=== PATIENT | male | born 1985 | race Caucasian/White ===

== ENCOUNTER 2017-05-04 20:17 | Emergency (ER) | payer OTHER ==
[~2017-05-04] VITALS: Ht 175.3 cm; Wt 101.9 kg
[2017-05-04 20:20] VITALS: TEMP 36.3; Ht 175.3 cm; Wt 101.9 kg
[2017-05-04 22:21] VITALS: BP 141/84; PULSE 93; O2SAT 95
[2017-05-04 22:25] LABS: LYME DISEASE AB IGG POS (NEG); LYME DISEASE AB IGM POS (NEG)
--- NOTE | 2017-05-04 22:37 | EMERGENCY ROOM VISIT NOTE ---
ED Visit Note First contact with patient: 20:30 CHIEF COMPLAINT: Skin rash HISTORY OF PRESENT ILLNESS: This 31-year-old male presents the ER with chief complaint that he has a bull's-eye rash all over his body. The patient states that he is in the [place] a lot but denies any known tick bites. The patient denies any fever or body aches. He states the rash is not itchy. The patient denies any history of Lyme's disease. REVIEW OF SYSTEMS: 6 system review was performed and was negative unless stated otherwise in history of present illness. PMH: The patient is healthy; wisdom teeth removal, finger surgery SOCIAL HISTORY: Patient lives with his family. The patient denies any tobacco or alcohol use. PHYSICAL EXAM: Vital Signs: Were reviewed See nurses' notes. GENERAL: 31-year- old white male appears in no acute distress. MENTAL Status: Alert and oriented 3. LUNGS: Clear to auscultation without wheezes rales or rhonchi. CARDIAC: Regular rate and rhythm without murmur. SKIN: The patient has multiple erythematous rings with central clearing over his trunk a few on his legs. There is one larger lesion that has a central reddened area. The rash is not raised or scaly. EMERGENCY COURSE: The patient was evaluated. Lyme titer was positive. The patient was given doxycycline 100 mg by mouth while in the emergency room. The patient was discharged home in stable condition. DIAGNOSIS: Lyme's disease DISCHARGE INSTRUCTIONS & TREATMENT: Tylenol or ibuprofen as needed for fever or body aches. Take the doxycycline as prescribed. If symptoms persist or worsen , follow-up with your family doctor. Current/Historical Medications No Active Prescriptions or Reported Meds Allergies Coded Allergies: Latex1 -Allergic Contact Dermititis (Verified Allergy, Intermediate, RASH , 05/04/17) Vital Signs Date Time Temp Pulse Resp B/P (MAP) Pulse Ox O2 Delivery O2 Flow Rate FiO2 05/04/17 22:21 93 18 141/84 95 Room Air 05/04/17 20:20 36.3 87 20 136/83 95 Room Air Laboratory Results Test 05/04/17 20:50 Lyme Disease IgG Antibody POS (NEG) Departure Information Prescriptions No Active Prescriptions or Reported Meds Referrals Tri Lizarraga C.R.N.P. (PCP) Patient Instructions [facility]
[2017-05-04] MEDS ORDERED: DOXY100T PO (22:40)
[2017-05-04] MEDS ORDERED: DOXYCYCLINE HYCLATE 100 MG CAP PO ONE (22:45)
[2017-05-10 08:31] LABS: 18KDIGG BAND NONREACTIVE (NONREACTIVE); 23KDIGG BAND REACTIVE (NONREACTIVE); 23KDIGM BAND REACTIVE (NONREACTIVE); 28KDIGG BAND NONREACTIVE (NONREACTIVE); 30KDIGG BAND NONREACTIVE (NONREACTIVE); 39KDIGG BAND NONREACTIVE (NONREACTIVE); 39KDIGM BAND NONREACTIVE (NONREACTIVE); 41KDIGG BAND REACTIVE (NONREACTIVE); 41KDIGM BAND REACTIVE (NONREACTIVE); 45KDIGG BAND REACTIVE (NONREACTIVE); 58KDIGG BAND NONREACTIVE (NONREACTIVE); 66KDIGG BAND REACTIVE (NONREACTIVE); 93KDIGG BAND NONREACTIVE (NONREACTIVE)
== END 2017-05-04 22:47 | disposition home or self-care (01) ==
LOC: C.EDB 20:18 → C.EDD 22:47
DX: A69.20 Lyme disease, unspecified (principal)

== ENCOUNTER → 2017-06-03 | Outpatient (CLI) | payer OTHER ==
--- NOTE | 2017-06-03 15:42 | DIAGNOSTIC IMAGING REPORT ---
LEFT INDEX FINGER 3 VIEWS HISTORY: L INDEX FINGER INJURY 2 DAYS AGO COMPARISON: None. FINDINGS: There is no fracture or dislocation. Mild proximal soft tissue swelling. No radiopaque foreign bodies. IMPRESSION: No fractures. Mild proximal soft tissue swelling within the left index finger. Electronically signed by: Sanchez Raya M.D. 06/03/2017 3:41 PM Dictated Date/Time: 06/03/2017 3:39 PM
== END | disposition home or self-care (01) ==
LOC: C.RAD1850 15:18
PROVIDERS: ATTEND Physician Assistant Surgical
DX: S69.92XA Unspecified injury of left wrist, hand and finger(s), initial encounter (principal); X58.XXXA Exposure to other specified factors, initial encounter

== ENCOUNTER 2017-12-31 10:44 | Emergency (ER) | payer OTHER ==
[~2017-12-31] VITALS: Ht 175.3 cm; Wt 106.5 kg
[2017-12-31 10:45] VITALS: TEMP 36.3; Ht 175.3 cm; Wt 106.5 kg
--- NOTE | 2017-12-31 11:29 | EMERGENCY ROOM VISIT NOTE ---
History First contact with patient: 11:11 Chief Complaint: LACERATION/CUT (SUT/DERMABOND) Stated Complaint: HAND LACERATION Nursing Triage Summary: Left posterior hand with a 1cm approximated horizontal laceration distal to the index finger. Bleeding is controlled. He is holding a dressing in place. History of Present Illness The patient is a 32 year old male who presents to the Emergency Room with complaints of a laceration to the left hand. The patient reports that he injured his left hand while working with a utility knife today. The injury occurred just prior to arrival in the ED. He rates his discomfort a 3/10 and states the pain is sharp. Pain is worsened with movement. He denies any associated numbness or weakness of the fingers. He has full range of motion of the hand. He believes that his tetanus vaccine is up-to-date. Review of Systems A 10 point review of systems was reviewed with the patient with pertinent positives and negatives as per history of present illness. All else were negative. Past Medical/Surgical History Medical Problems: (1) No significant active problems Surgical Problems: (1) No significant past surgical history Family History Patient reports no known family medical history. Social History Smoking Status: Never Smoker Alcohol Use: none Marital Status: Housing Status: lives with family Occupation Status: employed Current/Historical Medications No Active Prescriptions or Reported Meds Physical Exam Vital Signs Date Time Temp Pulse Resp B/P (MAP) Pulse Ox O2 Delivery O2 Flow Rate FiO2 12/31/17 10:45 36.3 110 20 135/97 95 Room Air Physical Exam VITALS: Vitals are noted on the nurse's note and reviewed by myself. Vital signs stable. GENERAL: This is a 32-year-old male, in no acute distress, well-developed well- nourished. SKIN: There is a 2 cm laceration to the dorsal aspect of the left hand, just proximal to the index finger. There are no tendons or significant blood vessels seen in the base of the wound. MUSCULOSKELETAL: Full range of motion of all fingers of the left hand. Strength 5/5 in the left index finger. Capillary refill within 2 seconds. NEURO: Patient was alert and oriented. Normal sensation of the left index finger. Medical Decision & Procedures Procedure Verbal consent was obtained to perform the procedure. Using sterile technique the wound was cleaned with Betadine. The area was sterilely draped. 2 ml of 1 % buffered lidocaine with epinephrine was infiltrated into the wound to achieve local anesthesia. Once the patient was anesthetized, the wound was copiously irrigated under pressure with sterile saline. The wound was explored and there were no deep structures injured such as tendons, bone, or significant blood vessels. The laceration was repaired using 4 simple interrupted 4-0 nylon sutures with the wound edges being well approximated. The patient tolerated the procedure well. Hemostasis was achieved. The area was cleaned with sterile saline and dressed with bacitracin ointment and bandage. Medical Decision The patient was evaluated as above. He presents with a laceration to the left hand. The wound was explored on exam and shows no tendon injury. This was repaired as noted in the procedure section. Suture care instructions were discussed with the patient. He verbalized understanding of my assessment and treatment plan and was discharged home in good condition. Medication Reconcilliation Current Medication List: was personally reviewed by me Blood Pressure Screening Patient's blood pressure: Normal blood pressure Impression Primary Impression: Hand laceration Departure Information Dispostion Home / Self-Care Condition GOOD Prescriptions No Active Prescriptions or Reported Meds Referrals Tri Lizarraga, C.R.N.P. (PCP) Patient Instructions [facility] Additional Instructions You have received 4 sutures on your hand. These sutures are NOT dissolvable and WILL need to be removed by a health care provider in 10-12 days. You can return to the Emergency Department or contact your Primary Care Provider to have the sutures removed. Proper wound care is essential for adequate wound healing and infection prevention. You can shower and clean the wound with soap and water. Do not scour over the wound, pat dry with a towel. Do not submerse the wound (i.e. bathe or dish wash) until the sutures have been removed. You can use an antibiotic ointment with a dressing over the wound for the next 3-4 days. After this time you may leave the wound dry and open to the air. If crust develops over the wound you can use a Q-tip to apply a 1:1 peroxide:water solution to clean the wound. Look for signs of infection of the wound including: increased pain, swelling, foul discharge, streaking, or increased temperature. If any of these are noticed you should return to the Emergency Department for further assessment and treatment. As with any laceration you may have received nerve damage to the surrounding tissues. This damage may or may not be permanent. You should keep the area covered with sunscreen for the first 6 months to 1 year when at risk for exposure to help minimize scarring. You can also use scar reducing creams or Vitamin E oil to help minimize scarring. For pain control, you can use the following ebqe-xjq-yxmebki medicines (if >12 yo): - Regular strength (325mg/tab) Tylenol (acetaminophen) 2 tabs every 4-6 hours as needed. Do not exceed 12 tablets in a 24 hour period. Avoid taking more than 4 grams (4000 mg) of Tylenol per day. This includes any other sources of acetaminophen you may take on a regular basis. - Regular strength (200 mg/tab) Advil (ibuprofen) 1-2 tabs every 4-6 hours as needed. Do not exceed a dose of 3200 mg per day. Return to the emergency department if your symptoms worsen despite treatment course outlined above. Problem Qualifiers Primary Impression: Hand laceration Encounter type: initial encounter Foreign body presence: without foreign body Laterality: left Qualified Codes: S61.412A - Laceration without foreign body of left hand, initial encounter
[2017-12-31] MEDS ORDERED: LIDOCAINE/EPINEPHRINE 1% 20 ML VIAL INFIL ONE (11:30)
[2017-12-31 12:02] VITALS: BP 132/94; PULSE 97; O2SAT 98
== END 2017-12-31 12:03 | disposition home or self-care (01) ==
LOC: C.EDB 10:45 → C.EDD 12:03
DX: S61.412A Laceration without foreign body of left hand, initial encounter (principal); W26.0XXA Contact with knife, initial encounter

== ENCOUNTER 2024-10-22 22:57 | Inpatient (IN) ==
--- OUTSIDE RECORDS SUMMARY | 2024-10-22 23:04 | External Medical Summary | Continuity of Care Document ---
Author Name Unknown Organization [facility] [address] [place] [address] [address] [place] PELAYO [phone] Care Team Providers Care Hide Examiner Name Role Phone Tri Fernandez Primary Care Physician [phone] Encounter [facility] [id number] Date(s): 08/11/24 - 08/11/24 [facility] [address] [facility] [address] [place] [address] Encounter Diagnosis Acute lower limb ischemia(Discharge Diagnosis) - 08/11/24 Discharge Disposition: Home or Self Care Attending Physician: Yang Loyola MD, Maria C Referring Physician: Yang Loyola MD, Maria C Allergies, Adverse Reactions, Alerts Substance Criticality Severity Reaction Reaction Severity Status Latex 1 Contact dermatitis A ctive 1Dermatitis per [facility] EMR Assessment and Plan Extracted from: Title:Surgery Office Visit Note Author:Yang Loyola MD, Maria C Date:08/11/24 I have reviewed the ultrasou nd with the patient and his and at this timethere is no concern regarding the flow to the right lower extremity. He has normal ABIs and normal triphasic flow. He does have a flap that we have known about it since a year agoand at this point is chronic. For this reason I do not think he needs to be on dual antiplatelet therapyand I have asked him to stop the Brilinta as soon as the prescription runs out. He should only remain on aspirin daily. We reviewed the signs and symptoms of arterial insufficiency including claudication, rest pain and nonhealing wounds and they know to call us with any issues or concerns. Follow-up in a year with a right lower extremity duplex. Medications aspirin 81 mg oral tablet, chewable Start: 08/23/23 9:27:00 AM EDT, 1 tab, PO, Daily Start Date: 08/23/23 Status: Ordered atorvastatin 40 mg oral tablet Start: 08/23/23 9:27:00 AM EDT, 1 tab, PO, Daily Start Date: 08/23/23 Status: Ordered Brilinta (ticagrelor) 90 mg oral tablet Start: 08/23/23 9:27:00 AM EDT, 1 tab, PO, bid Start Date: 08/23/23 Status: Ordered Coreg 25 mg oral tablet Start: 09/05/23 4:13:00 PM EST, 1 tab, PO, bid Start Date: 09/05/23 Status: Ordered Mental Status 08/11/24 Barriers to Learning one year None evide nt Mandatory Health Literacy Documentation Yes Health Literacy Communication Barriers N ever Primary Language Kinyarwanda Problem List Condition Confirmation Course Effective Dates Status H ealth Status Informant Acute lower limb ischemia Confirmed Active Stroke Confirmed Active Hyperlipidemia Confirmed Active Diagnosis Diagnosis Type Effective Dates Health Status Cl inical Service Informant Acute lower limb ischemia Discharge Diagnosis 08/11/24 Procedures Procedure Date Related Diagnosis Body Site Status Stent Completed Vital Signs Most recent to oldest [Reference Range]: 1 Patient Weight 110.0 kg (08/11/24 1:49 PM) Heart Rate 73 bpm (08/11/24 1:49 PM) Blood Pressure 128/72mmHg (08/11/24 1:49 PM) BP Location # 1 Left Arm (08/11/24 1:49 PM) Social History Social History Type Response Smoking Status Never smoked cigaret leticia Sex Male Sex Representation Male (finding) Implantable Device List Procedure Provider Procedure Date Device Type Site Unknown Unknown 08/16/23 Unknown Unknown Device Identifier Serial Number Lot or Batch Number Manufacturing Date Expiration Date Distinct Identification Code MRI Safety Implantable Status Assigning Authority Unknown Unknown [id number] Unknown 01/22/29 Unknown Unknown Active Unk nown Vascular surgery Outpatient Note * Yang Loyola MD, Maria C: PERFORM, MODIFY Event Display: Vascular Surgery Outpt Note Authored Date: [id number] Primary Care Provider SHANDRA Fernandez Rebecca Linn Referring Provider Yang Loyola MD, Maria C Chief Complaint 1 year follow up for lower limb ischemia History of Present Illness Patient is a very pleasant 39-year-old male who underwent right femoral reconstruction a year ago after he had a strokeandhe had a closure device on theright lower extremity after neurosurgery's intervention. He recovered well from both the stroke and acute limb ischemia and is doing well. He is back to work and does not have any evidence of arterial insufficiency. Denied any claudication, rest pain or nonhealing wounds. As [facility] that he will not need Brilinta any longer and that it was up to me to decide the antiplatelet regimen. He is currently taking aspirin as well as Brilinta. No new issues or concerns. Physical Exam Vitals & Measurements HR:73(Monitored) BP:128/72 WT:110.000kg(Dosing) WT:110.0kg On exam his very pleasant and answering questions appropriately Regular rhythm rhythm Abdomen is soft and not tender Bilateral femoral pulses Bilateral DP and PT pulses. No evidence of malperfusion. Assessment/Plan I have reviewed the ultrasound with the patient and his and at this timethere is no concern regarding the flow to the right lower extremity. He has normal ABIs and normal triphasic flow. He does have a flap that we have known about it since a year agoand at this point is chronic. Forthis reason I do not think he needs to be on dual antiplatelet therapyand I have asked him to stop the Brilinta as soon as the prescription runs out. He should only remain on aspirin daily. We reviewed the signs and symptoms of arterial insufficiency including claudication, rest pain and nonhealing wounds and they know to call us with any issues or concerns. Follow-up in a year with a right lower extremity duplex. Attestation I spent10 minutes of preparation, performing a medically appropriate exam, counseling/educating the patient/family, ordering medications/tests/procedures, independently interpreting results and coordinating care on the day of this encounter. Problem List/Past Medical History Ongoing Acute lower limb ischemia Hyperlipidemia Stroke Procedure/Surgical History Stent Medications aspirin(aspirin 81 mg oral tablet, chewable), 81 mg= 1 tab, PO, Daily atorvastatin(atorvastatin 40 mg oral tablet), 40 mg= 1 tab, PO, Daily carvedilol(Coreg 25 mg oral tablet), 25 mg= 1 tab, PO, bid ticagrelor(Brilinta (ticagrelor) 90 mg oral tablet), 90 mg= 1 tab, PO, bid Allergies LatexContact dermatitis Social History Smoking Status Never smoked cigarettes Diagnostic Results (08/11/2024 12:15 EDT VL Lower Ext Arterial Duplex Limited) NTERPRETATION/FINDINGS Arterial duplex exam of the right lower extremity reveals: 1. Patent common femoral, deep femoral, superficial femoral, popliteal, tibioperoneal trunk, posterior tibial, peroneal, and anterior tibial arteries without evidence of significant stenosis. 2. Echogenic material in the proximal superficial femoral artery; unable to determine dissection flap vs. chronic thrombus. 3. The ankle/brachial index is 1.16 (normal) on the right and 1.21 (normal) on the left. Retrospective Comparison to prior exam dated 01/06/24: 1. The previous ABIs were 1.07 (normal) on the right and 1.18 (normal) on the left. [1] Reviewed with the patient [1] Lower Ext Arterial Duplex Limited; MD Nixon, Viet 08/11/2024 12:15 EDT Electronic Signature on File CC: SHANDRA Burkett [address] [address] * Electronically Reviewed/Signed by: Erica Loyola MD Author Signature Dt/Tm:08/11/2024 02:33 PM Division of Vascular Surgery [facility] Patient Care team information Care Team Personnel Name: SHANDRA Kwok Terra L Position: Nurse Pract - Vascular Surg Member Role: Lifetime Relationship Address: [address] [place] [id number] [place] Name: Kwan Girard Keri Position: Pharmacist Member Role: Pharmacy - Lifetime Name: SHANDRA Fernandez Rebecca Linn Position: Referring Member Role: Primary Care Provider Address: [address] [address] [place] Care Team Related Persons Name: JAIME SANCHEZ
--- OUTSIDE RECORDS SUMMARY | 2024-10-22 23:05 | External Medical Summary | Continuity of Care Document ---
Author Name Unknown Organization [facility] [address] Address [address] [place]AY[place] [phone] Care Team Providers Care Auditor Supervisor Name Role Phone Tri Fernandez Primary Care Physician [phone] Encounter [facility] [id number] Date(s): 08/11/24 - 08/11/24 [facility] [address] [facility] [address] [facility], [address] [place] [phone] Discharge Disposition: Home or Self Care Attending Physician: Yang Loyola MD, Maria C Referring Physician: Yang Loyola MD, Maria C Allergies, Adverse Reactions, Alerts Substance Criticality Severity Reaction Reaction Severity Status Latex 1 Contact dermatitis A ctive 1Dermatitis per [facility] EMR Medications aspirin 81 mg oral tablet, chewable [...] PO, bid Start Date: 09/05/23 Status: Ordered Problem List Condition Confirmation Course Effective Dates Status H ealth Status Informant Acute lower limb ischemia Confirmed Active Stroke Confirmed Active Hyperlipidemia Confirmed Active Procedures Procedure Date Related Diagnosis Body Site Status Stent Completed Results Radiology Reports * Exam Date Time Procedure Performing Provider Status 08/11/24 12:15 PM VL Lower Ext Arterial Duplex Limited Joe Jara; Final Notes: (VL Lower Ext Arterial Duplex Limited) Reason For Exam: s/p femoral reconstruction VL Lower Ext Arterial Duplex Limited [facility] FINAL REPORT Name: CARLEE SANCHEZ : 1985 Visit: [id number] Date: 11 Aug 2024 TYPE OF TEST: Extremity Arterial Duplex REASON FOR TEST S/p femoral reconstruction INTERPRETATION/FINDINGS Arterial duplex exam of the right lower [...] right and 1.18 (normal) on the left. IMPRESSION/COMMENTS I have personally reviewed the data relevant to the interpretation of this study. TECHNOLOGIST: Lucy Jara RVT PHYSICIAN: Viet Alicea MD Signed: 08/11/2024 01:42 PM Final Dictated by:MD Alicea Aditya Dictated DT/TM:08/11/2024 1:42 Signed by:MD Alicea Aditya Signed (Electronic Signature):08/11/2024 1:42 p Transcribed by: Social History Social History Type Response Smoking Status Never smoked cigaret leticia Sex Male Sex Representation Male (finding) Implantable Device List Procedure Provider Procedure Date Device Type Site Unknown Unknown 08/16/23 Unknown Unknown Device Identifier Serial Number Lot or Batch Number Manufacturing Date Expiration Date Distinct Identification Code MRI Safety Implantable Status Assigning Authority Unknown Unknown [id number] Unknown 01/22/29 Unknown Unknown Active Unk staceyn Patient Care team information Care Team Personnel Name: SHANDRA Kwok Terra L Position: Nurse Pract - Vascular Surg Member Role: Lifetime Relationship Address: [address] [place] [address] Name: Kwan Girard Keri Position: Pharmacist Member Role: Pharmacy - Lifetime Name: SHANDRA Fernandez Rebecca Linn Position: Referring Member Role: Primary Care Provider Address: [address] [place] [address] [place] Care Team Related Persons Name: JAIME SANCHEZ
--- NOTE | 2024-10-22 23:08 | Emergency Department Note ---
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. Recently seen by neursurgery in 03/2024. Was advised he would be fine to stop Brillinta when OK with vascular surgery and continue on the aspirin and atorvastatin alone. Plan 1 year f/up with u/s of carotid arteries. Patient presents today as he had 5-10 episode of difficulty word finding and not feeling right. He states he is back to baseline now. Patient denies chest pain, dyspnea, fever, chills, numbness, tingling, localized weakness. No other concerns per patient. He does not smoke. Home Medications Medication Instructions Recorded Confirmed Type aspirin 81 mg tablet,delayed 81 mg PO DAILY 09/02/23 07/15/24 History release atorvastatin 40 mg tablet 40 mg PO QPM #90 tabs 09/01/24 Rx carvedilol 25 mg tablet (Coreg) 25 mg PO Q12H #180 tabs 09/01/24 Rx Allergies Allergy/AdvReac Type Severity Reaction Status Date / Time latex Allergy Intermediate RASH Verified 07/15/24 07:56 No Known Drug Allergies Allergy Verified 07/15/24 07:56 Past Med/Surg History Problem List (Updated 10/23/24 @ 02:13 by Carissa Cruz PA-C) Transient cerebral ischemia (Acute) History of CVA (cerebrovascular accident) [place] carotid artery [place] [facility] [place]ergic rhinitis Dyslipidemia Skin lesion of left ear Medical History (Updated 10/23/24 @ 02:13 by Carissa Cruz PA-C) Dissection of left carotid artery CVA (cerebral vascular accident) No significant medical problems Surgical History (Updated 09/09/23 @ 17:05 by ANA Vera) H/O fasciotomy X2 S/P coronary artery stent placement Hx of thumb surgery Closed reduction and percutaneous pinning of left thumb proximal phalanx supracondylar fracture Hx of hand surgery LEFT LITTLE FINGER SURGERY Nausea and vomiting after administration of anesthetic agent History of herniorrhaphy INGUINAL [place] teeth removed Family History Grandfather (Maternal) Diabetes Mother Hypertension Other No significant family history Denies family history of Ovarian cancer Prostate cancer Myocardial infarction Breast cancer Colorectal cancer Social History (Updated 12/19/23 @ 09:52 by Laura Sparks LPN) Smoking Status: Never smoker Second Hand Exposure: No; Do You Dip or Chew Tobacco: No; Hx Alcohol Use: No Hx Substance Use: No Preferred Language: Tristanian Communication Ability: Effective Visual Impairment: No Limitations Hearing Ability: Normal Mold Stacker Required: No Beliefs That Will Affect Care: None marital status: Current Living Situation: Spouse current occupational status: employed current occupation: SELF EMPLOYEED How many Children do You have: 4 Feels Safe at Home: Yes Childhood Exposure to Second-Hand Smoke: No Diet: regular Diet Comment: regular caffeine: Yes during the past year weight has: remained stable Dental Care, Regularly: Yes Physical Activity Frequency: Daily Seatbelt Use: sometimes Sunscreen Use: Yes Assistive Devices: Glasses Review of Systems A total of 10 systems reviewed and were otherwise negative Physical Exam Vital Signs Vital Signs - 24 hr 10/22/24 23:01 10/22/24 23:22 10/22/24 23:30 Temperature 36.4 C L Temperature Source Oral Pulse Rate 103 H 101 H 95 H Pulse Rate from SpO2 Sensor Pulse Rhythm Regular Pulse Strength Normal Respiratory Rate 20 20 Respiratory Effort / Characteristics Non-Labored Spontaneous Respiratory Depth Normal Blood Pressure 167/94 H 146/80 H Blood Pressure Mean 118 103 Blood Pressure Position Lying Pulse Oximetry 95 96 Oxygen Delivery Method Room Air Sepsis Recent Fever Within 48 Hours No Sepsis New/Unexplained Change in Mental Status N/A Sepsis Action Taken by Nursing No Action Required 10/23/24 00:00 10/23/24 00:30 10/23/24 01:00 Temperature Temperature Source Pulse Rate 93 H 91 H 86 Pulse Rate from SpO2 Sensor 89 87 Pulse Rhythm Pulse Strength Respiratory Rate 20 20 17 Respiratory Effort / Characteristics Respiratory Depth Blood Pressure 158/89 H 140/76 157/93 H Blood Pressure Mean 109 97 114 Blood Pressure Position Pulse Oximetry 96 96 96 Oxygen Delivery Method Sepsis Recent Fever Within 48 Hours Sepsis New/Unexplained Change in Mental Status Sepsis Action Taken by Nursing 10/23/24 02:58 Temperature Temperature Source Pulse Rate 86 Pulse Rate from SpO2 Sensor Pulse Rhythm Pulse Strength Respiratory Rate Respiratory Effort / Characteristics Respiratory Depth Blood Pressure Blood Pressure Mean Blood Pressure Position Pulse Oximetry Oxygen Delivery Method Sepsis Recent Fever Within 48 Hours Sepsis New/Unexplained Change in Mental Status Sepsis Action Taken by Nursing VITALS: Vitals are noted on the nurse's note and reviewed by myself. Vital signs stable. GENERAL: Pleasant gentleman, in no acute distress, nondiaphoretic, well- developed well-nourished. SKIN: The skin was without rashes, erythema, edema, or bruising. There is no tenting of the skin. Capillary reflex less than 2 seconds. HEAD: Normocephalic atraumatic. EARS: External auditory canals clear EYES: Pupils equal round and reactive to light and accommodation. Conjunctivae without injection, sclerae without icterus. Extraocular movements intact. NOSE: Patent, no discharge. MOUTH: Mucous membranes moist. Pharynx without erythema or exudate. Uvula midline. Airway patent. Tongue does not deviate. NECK: Supple without nuchal rigidity. No lymphadenopathy. No thyromegaly. Cervical spine is nontender. No JVD. HEART: Regular rate and rhythm LUNGS: Clear to auscultation bilaterally without wheezes, rales or rhonchi. No retractions or accessory muscle use. ABDOMEN: Positive bowel sounds x 4. Normal tympanic percussion. Soft, nontender, without masses or organomegaly. Santacruz sign negative. No guarding or rebound tenderness. No CVA tenderness MUSCULOSKELETAL: No muscle atrophy, erythema, or edema noted. NEURO: Patient was alert and oriented to person place and time. Normal sensation to light and sharp touch. Cranial nerves II through XII grossly intact. No pronator drift. Cerebellar exam intact. No focal neurological deficits. Course Administered Medications Discontinued Medications Ioversol (Optiray 320 125ml) 125 ml IV ONCE ONE Stop: 10/23/24 00:27 Last Admin: 10/23/24 00:26 Dose: 118 ml Documented By: MARS Critical Care Time Critical Care Time: Yes Total Critical Care Time: 35 I have personally spent 35 minutes of critical care time in the direct management of this patient. This includes bedside care, interpretation of diagnostic studies, and testing, discussion with consultants, patient, and family members, and other required patient management activities. This 35 minutes is in excess of all separately billable procedures. Medical Decision Making Medical Records Attestation: I reviewed the patient's medical records. Home Medications Current Medication List: was personally reviewed by me Laboratory Data Attestation: I reviewed the patient's lab results. 10/22/24 23:20 10/22/24 23:20 Lab Results 10/22/24 10/22/24 Range/Units 23:20 23:21 WBC 11.08 H (4.8-10.8) K/ul RBC 5.11 (4.70-6.10) M/uL Hgb 14.9 (14.0-18.0) g/dl Hct 43.6 (42.0-52.0) % MCV 85.3 (80.0-100.0) fL MCH 29.2 (25.0-34.0) pg MCHC 34.2 (32.0-36.0) g/dL RDW Std Deviation 39.3 (36.4-46.3) fL RDW Coeff of Carlene 12.7 (11.5-14.5) % Plt Count 245 (130-400) K/uL MPV 10.1 (9.4-12.4) fL Immature Gran % (Auto) 0.3 % Neut % (Auto) 69.4 % Lymph % (Auto) 17.7 % [place] % (Auto) 8.8 % Eos % (Auto) 3.2 % Baso % (Auto) 0.6 % Neut # (Auto) 7.70 H (1.40-6.50) K/uL Lymph # (Auto) 1.96 (1.20-3.40) K/uL [place] # (Auto) 0.97 H (0.11-0.59) K/uL Eos # (Auto) 0.35 (0.00-0.50) K/uL Baso # (Auto) 0.07 (0.00-0.20) K/uL Immature Gran # (Auto) 0.03 (0.01-0.20) K/uL PT 10.4 (9.0-12.0) Seconds INR 1.0 (0.9-1.1) APTT 27 (21-31) Seconds PTT Ratio 1.0 Sodium 141 (136-145) mmol/L Potassium 3.8 (3.5-5.1) mmol/L Chloride 105 (98-107) mmol/L Carbon Dioxide 28 (21-32) mmol/L Anion Gap 8 (3-11) BUN 21 (6-23) mg/dl Creatinine 1.05 (0.6-1.4) mg/dl Est Cr Clr Drug Dosing 119.5 ml/min eGFR 92.03 BUN/Creatinine Ratio 20.0 (10-20) Glucose 115 H (70-99(Fasting)) mg/dl POC Glucose 103 H (70-99) mg/dl Calcium 9.4 (8.6-10.3) mg/dl Magnesium 1.9 (1.7-2.4) mg/dl Total Bilirubin 0.3 (0.2-1.0) mg/dl AST 18 (13-39) U/L ALT 24 (7-52) U/L Alkaline Phosphatase 117 H (34-104) U/L Troponin I High Sens 2.5 (0-20) pg/ml Total Protein 7.5 (6.0-8.3) gm/dl Albumin 4.4 (3.4-5.0) gm/dl Globulin 3.1 (2.5-4.0) gm/dl Albumin/Globulin Ratio 1.4 (0.9-2) Imaging Data Attestation: I personally reviewed and interpreted this imaging study as follows: Radiologist's Impression: Head CT 10/22/24 23:03 EXAM: CT head/brain wo con CLINICAL HISTORY: Pt arrives to ED via EMS for following a 5 minute episode of expressive asphasia. Pt has hx of left carotid stent placed in [place] a year ago, with a torn right femoral from surgery that has not yet been repaired. Pt denies any headache, vision changes or pain. Pt is able to communicate effectively at time of arrival. TECHNIQUE: Multiple axial images are obtained from the skull base to the vertex without contrast. CT scan was performed according to ALARA (as low as reasonable achievable). COMPARISON: 08/16/2023 02:20:05 CONDENSER OPERATOR FINDINGS: Large encephalomalacia with gliosis noted involving left parietal lobe cortex and subcortical white matter - sequelae of previous insult. The brain shows normal morphology, attenuation, and volume for age. No evidence of space occupying lesion, hemorrhage, edema, mass effect, midline shift, extra axial collection, or hydrocephalus is noted. Ventricles, sulci, and basal cisterns are symmetric and normal in size and configuration. The reyes-white matter differentiation is preserved. Visualized paranasal sinuses and mastoid air cells are well aerated. Orbital contents are within normal limits. Bony structures are intact. IMPRESSION: Large encephalomalacia with gliosis noted involving left parietal lobe cortex and subcortical white matter - sequelae of previous insult-new finding. No evidence of acute intracranial abnormality is demonstrated Electronically signed by Anthony Beaulieu 10-23-2024 01:09 AM Head CTA 10/22/24 23:03 EXAM: CT angio head w con CLINICAL HISTORY: Pt arrives to ED via EMS for following a 5 minute episode of expressive asphasia. Pt has hx of left carotid stent placed in [place] a year ago, with a torn right femoral from surgery that has not yet been repaired. Pt denies any headache, vision changes or pain. Pt is able to communicate effectively at time of arrival., 118 ML OPTIRAY 320 TECHNIQUE: Contrast enhanced thin slice CT angiography scan of the cerebral vessels was performed with intravenous contrast. Angiographic images were processed, 3D MIP images were acquired for interpretation. Contiguous axial images were obtained. Reformatted coronal and sagittal images were also reviewed. If IV contrast material had not been administered, the likelihood of detecting abnormalities relevant to the patients condition would have been substantially decreased. CT scan was performed according to ALARA (as low as reasonable achievable). COMPARISON: 08/16/2023 02:13:00 CONDENSER OPERATOR FINDINGS: Bilateral internal carotid arteries show normal course, calibre and opacification in the canalicular and cavernous part. Their division into the anterior cerebral artery and middle cerebral artery is defined. A1, A2 and M1, M2 segments are normal on both the sides. Bilateral vertebral arteries are seen to unite the form the basilar artery in a normal fashion. Basilar artery shows normal course, caliber and opacification. Its division into the posterior cerebral arteries is defined. Bilateral P1 and P2 segments are normal. Visualized venous structures show normal opacification. No evidence of intracranial aneurysm or AV malformation is seen. IMPRESSION: 1. No evidence of stenosis or aneurysm. No evidence of dissection. As compared to prior study, complete recanalization of left internal carotid artery. Electronically signed by Anthony Beaulieu 10-23-2024 01:48 AM Neck CTA 10/22/24 23:03 EXAM: CT angio neck with con CLINICAL HISTORY: Pt arrives to ED via EMS for following a 5 minute episode of expressive asphasia. Pt has hx of left carotid stent placed in [place] a year ago, with a torn right femoral from surgery that has not yet been repaired. Pt denies any headache, vision changes or pain. Pt is able to communicate effectively at time of arrival. 118 ML OPTIRAY 320 TECHNIQUE: Contrast enhanced thin slice CT angiography scan of the carotid vessels was performed with intravenous contrast. Angiographic images were processed, 3D MIP images were acquired for interpretation.Contiguous axial images were obtained. Reformatted coronal and sagittal images were also reviewed. If IV contrast material had not been administered, the likelihood of detecting abnormalities relevant to the patients condition would have been substantially decreased. CT scan was performed according to ALARA (as low as reasonable achievable). COMPARISON: 08/16/2023 02:13:00 CONDENSER OPERATOR FINDINGS: Evidence of thin intraluminal hypodense septum is noted involving left internal carotid artery just distal to carotid bulb - suggest possibility of dissection. Included great vessels of the aortic arch are grossly unremarkable. Common carotid artery, carotid Bulb, internal carotid artery , and origin of the external carotid artery are well opacified. Vertebral arteries are well opacified. Jugular veins are well opacified. Included lung apices are grossly unremarkable. Thyroid gland appears unremarkable. IMPRESSION: 1. Evidence of thin intraluminal hypodense septum is noted involving left internal carotid artery just distal to carotid bulb - suggest possibility of dissection. DDx - could be residual linear thrombus. 2. No evidence of stenosis or aneurysm. 3. As compared to prior study, there is recanalization of intra and extracranial segment of left internal carotid artery at present study. Electronically signed by Anthony Beaulieu 10-23-2024 01:23 AM MDM Narrative Prior records/ancillary studies reviewed and summarized above. Nursing notes reviewed. Additional history obtained from nursing. The patient's history was concerning for TIA symptoms. Differential diagnosis: Etiologies such as metabolic, infection, hypo/hyperglycemia, electrolyte abnormalities, cardiac sources, intracerebral event, toxicologic, neurologic, as well as others were entertained. Physical examination: As above. ER treatment provided: IV Lock An order was placed for continuous cardiac monitoring. The monitor shows a rate of 60-100 with a sinus rhythm per my interpretation. TIA workup was initiated On reassessment the patient felt better. Diagnostics interpretation by me: ECG: Ordered for TIA symptoms EKG: Normal sinus, normal intervals, no acute ST-T wave changes. Impression normal sinus rhythm independently interpreted by myself The labs Independently Interpreted by myself revealed mild leukocytosis, negative troponin Imaging studies: Imaging was reviewed and read by radiology TIA Score: Age > 60:(1) 0 BP >140 >90 (1): 0 Clinical features (unilateral weakness) (2): 0 CF speech disturbance (1): 1 Duration of symptoms 10-60min (1): 1 Duration >60min (2): 0 Diabetes (1): 0 Score @ 2days @ 7days @ 90days 0-3 low 1% 1.2% 3.1% 4-5 mod 4.1% 5.9% 9.8% 6-7 high 8.1% 11.7% 17.8% Total: 2 Consultation: A consultation was placed with the stroke provider at [place], Dr Tolbert. The case was discussed and diagnostics were reviewed. He did review the images independently and the most updated scans at [place] for comparison. He also did speak to the patient via telemetry stroke. He recommends restarting the Brilinta with a loading dose of 180 mg now and then 90 mg twice daily. He recommends EEG in the morning and in 24 to 36 hours repeating the head CT. He states he will follow-up outpatient with the patient also. Consultation: Medicine was consulted and the case is discussed. Patient will be admitted to the medical service. Exam and history seem consistent with TIA. I did consult telestroke and recommends medical admission. Medicine was consulted and the case was discussed. Patient will be admitted to the medical service. Medicine was made aware of the recommendations of the Brilinta, EEG and repeat head scan in 24 to 36 hours. Patient was neurovascularly and neurologically intact. He is well-appearing. Patient is agreeable treatment plan of admission. By the evaluation outlined above emergent etiologies such as infection, electrolyte abnormalities, cardiac sources, toxologic, abnormalities blood glucose, metabolic, as well as others were deemed relatively unlikely. The pt informed about the findings as listed above. All questions were answered and pleased with the treatment. The chart was completed utilizing [employer] voice recognition software. Grammatical errors, random word insertions, pronoun errors, and incomplete sentences are an occassional consequence of this system due to software limitations, ambient noise, and hardware issues. Any formal questions or concerns about the content, text, or information contained within the body of this dictation should be directly addressed to the physician refinery operator assistant for clarification. Impression & Plan Transient cerebral ischemia Discharge Plan Visit Data Chief Complaint: TIA Symptoms Stated Complaint: TIA Symptoms ED Provider: Mariana Mendoza ED Midlevel Provider: Carissa Cruz Discharge Problem: Transient cerebral ischemia Patient Disposition: Admitted As Inpatient Condition: Good Discharge Instructions Krames/Other Patient Handouts: TIA Dc Activity Restrictions/Additional Instructions: Forms Stand Alone Forms: Important Visit Information Prescriptions Prescriptions: No Action aspirin 81 mg tablet,delayed release (DR/EC) 81 mg PO DAILY Rx Instructions: New: DC [facility] 08/30/23 atorvastatin 40 mg tablet 40 mg PO QPM Qty: 90 1RF carvedilol [Coreg] 25 mg tablet 25 mg PO Q12H Qty: 180 1RF Rx Instructions: must administer with a meal/food Referrals Referrals: Tri Fernandez CRNP [Primary Care Provider] - Discharge Problem: Transient cerebral ischemia Qualifiers: Transient cerebral ischemia type: unspecified Qualified Code(s): G45.9 - Transient cerebral ischemic attack, unspecified
[2024-10-22 23:42] LABS: Basophils # (auto) 0.07 K/uL (0.00-0.20); Basophils % (auto) 0.6 %; Eosinophils # (auto) 0.35 K/uL (0.00-0.50); Eosinophils % (auto) 3.2 %; Hematocrit (blood only) 43.6 % (42.0-52.0); Hemoglobin 14.9 g/dl (14.0-18.0); Immature Granulocytes # (auto) 0.03 K/uL (0.01-0.20); Immature Granulocytes % (auto) 0.3 %; Lymphocytes # (auto) 1.96 K/uL (1.20-3.40); Lymphocytes % (auto) 17.7 %; Mean Corpuscular Hemoglobin 29.2 pg (25.0-34.0); Mean Corpuscular Hgb Conc 34.2 g/dL (32.0-36.0); Mean Corpuscular Volume 85.3 fL (80.0-100.0); Mean Platelet Volume 10.1 fL (9.4-12.4); Monocytes # (auto) 0.97 K/uL (0.11-0.59); Monocytes % (auto) 8.8 %; Neutrophils % (auto) 69.4 %; Platelet Count 245 K/uL (130-400); RDW Coefficient of Variation 12.7 % (11.5-14.5); RDW Standard Deviation 39.3 fL (36.4-46.3); Red Blood Count 5.11 M/uL (4.70-6.10); White Blood Count 11.08 K/ul (4.8-10.8)
[2024-10-22 23:52] LABS: Albumin Globulin Ratio 1.4 (0.9-2); Albumin Level 4.4 gm/dl (3.4-5.0); Bilirubin,Total 0.3 mg/dl (0.2-1.0); Calcium 9.4 mg/dl (8.6-10.3); Creatinine Clr Calc Pharmacy 119.5 ml/min; Globulin 3.1 gm/dl (2.5-4.0); Magnesium 1.9 mg/dl (1.7-2.4); Potassium 3.8 mmol/L (3.5-5.1); Total Protein 7.5 gm/dl (6.0-8.3)
[2024-10-22 23:58] LABS: Troponin I High Sensitivity 2.5 pg/ml (0-20)
[2024-10-23 00:04] LABS: Partial Thromboplastin Time 27 Seconds (21-31); Prothrombin Time 10.4 Seconds (9.0-12.0)
[2024-10-23] MEDS: OPTIRAY 320 125ml IV ONE (00:26)
--- NOTE | 2024-10-23 01:09 | CT Scan Report ---
EXAM: CT head/brain wo con CLINICAL HISTORY: Pt arrives to ED via EMS for following a 5 minute episode of expressive asphasia. Pt has hx of left carotid stent placed in [place] a year ago, with a torn right femoral from surgery that has not yet been repaired. Pt denies any headache, vision changes or pain. Pt is able to communicate effectively at time of arrival. TECHNIQUE: Multiple axial images are obtained from the skull base to the vertex without contrast. CT scan was performed according to ALARA (as low as reasonable achievable). COMPARISON: 08/16/2023 02:20:05 TON CONTAINER FILLER FINDINGS: Large encephalomalacia with gliosis noted involving left parietal lobe cortex and subcortical white matter - sequelae of previous insult. The brain shows normal morphology, attenuation, and volume for age. No evidence of space occupying lesion, hemorrhage, edema, mass effect, midline shift, extra axial collection, or hydrocephalus is noted. Ventricles, sulci, and basal cisterns are symmetric and normal in size and configuration. The reyes-white matter differentiation is preserved. Visualized paranasal sinuses and mastoid air cells are well aerated. Orbital contents are within normal limits. Bony structures are intact. IMPRESSION: Large encephalomalacia with gliosis noted involving left parietal lobe cortex and subcortical white matter - sequelae of previous insult-new finding. No evidence of acute intracranial abnormality is demonstrated Electronically signed by Anthony Beaulieu 10-23-2024 01:09 AM
--- NOTE | 2024-10-23 01:23 | CT Scan Report ---
EXAM: CT angio neck with con CLINICAL HISTORY: Pt arrives to ED via EMS for following a 5 minute episode of expressive asphasia. Pt has hx of left carotid stent placed in [place] a year ago, with a torn right femoral from surgery that has not yet been repaired. Pt denies any headache, vision changes or pain. Pt is able to communicate effectively at time of arrival. 118 ML OPTIRAY 320 TECHNIQUE: Contrast enhanced thin slice CT angiography scan of the carotid vessels was performed with intravenous contrast. Angiographic images were processed, 3D MIP images were acquired for interpretation.Contiguous axial images were obtained. Reformatted coronal and sagittal images were also reviewed. If IV contrast material had not been administered, the likelihood of detecting abnormalities relevant to the patients condition would have been substantially decreased. CT scan was performed according to ALARA (as low as reasonable achievable). COMPARISON: 08/16/2023 02:13:00 MARKETING ADMIN FINDINGS: Evidence of thin intraluminal hypodense septum is noted involving left internal carotid artery just distal to carotid bulb - suggest possibility of dissection. Included great vessels of the aortic arch are grossly unremarkable. Common carotid artery, carotid Bulb, internal carotid artery , and origin of the external carotid artery are well opacified. Vertebral arteries are well opacified. Jugular veins are well opacified. Included lung apices are grossly unremarkable. Thyroid gland appears unremarkable. IMPRESSION: 1. Evidence of thin intraluminal hypodense septum is noted involving left internal carotid artery just distal to carotid bulb - suggest possibility of dissection. DDx - could be residual linear thrombus. 2. No evidence of stenosis or aneurysm. 3. As compared to prior study, there is recanalization of intra and extracranial segment of left internal carotid artery at present study. Electronically signed by Anthony Beaulieu 10-23-2024 01:23 AM
--- NOTE | 2024-10-23 01:49 | CT Scan Report ---
EXAM: CT angio head w con CLINICAL HISTORY: Pt arrives to ED via EMS for following a 5 minute episode of expressive asphasia. Pt has hx of left carotid stent placed in [place] a year ago, with a torn right femoral from surgery that has not yet been repaired. Pt denies any headache, vision changes or pain. Pt is able to communicate effectively at time of arrival., 118 ML OPTIRAY 320 TECHNIQUE: Contrast enhanced thin slice CT angiography scan of the cerebral vessels was performed with intravenous contrast. Angiographic images were processed, 3D MIP images were acquired for interpretation. Contiguous axial images were obtained. Reformatted coronal and sagittal images were also reviewed. If IV contrast material had not been administered, the likelihood of detecting abnormalities relevant to the patients condition would have been substantially decreased. CT scan was performed according to ALARA (as low as reasonable achievable). COMPARISON: 08/16/2023 02:13:00 VENEER MEASURER FINDINGS: Bilateral internal carotid arteries show normal course, calibre and opacification in the canalicular and cavernous part. Their division into the anterior cerebral artery and middle cerebral artery is defined. A1, A2 and M1, M2 segments are normal on both the sides. Bilateral vertebral arteries are seen to unite the form the basilar artery in a normal fashion. Basilar artery shows normal course, caliber and opacification. Its division into the posterior cerebral arteries is defined. Bilateral P1 and P2 segments are normal. Visualized venous structures show normal opacification. No evidence of intracranial aneurysm or AV malformation is seen. IMPRESSION: 1. No evidence of stenosis or aneurysm. No evidence of dissection. As compared to prior study, complete recanalization of left internal carotid artery. Electronically signed by Anthony Beaulieu 10-23-2024 01:48 AM
[2024-10-23] MEDS: TICAGRELOR 90 MG TAB PO ONE (03:44)
--- NOTE | 2024-10-23 04:04 | History & Physical Report ---
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 Patient now returned to normal, no additional complaints. Given his history obvious concern for possible TIA, CVA, consider seizure given prior CVA Case discussed with [facility] [place] Neurology -Admission to PCU -Continue Neuro checks NIHSS per protocol -Restart Brillinta 90mg po BID - patient received 180mg po in the ER -Continue ASA -Continue Atorvastatin -Repeat CT Head at 24 hours -Check EEG -Neurology consultation appreciated (2) History of CVA (cerebrovascular accident): Plan: As above. 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 He is s/p thrombectomy with stent placement. Patient with very minimal neurologic deficits following his CVA - some right sided weakness when he is very tired, otherwise no deficits. He does have baseline dilation of his left pupil following an accident. This evening patient was going to bed when he developed acute onset of diplopia and dysarthria. He reports that the double vision involved both eyes and was horizontal diplopia. This lasted approximately 5 minutes then resolved entirely. His dysarthria continued for approximately 30 minutes - he reports he was unable to speak. The event was witnessed by patient's - she reports that he pulled both his hands up to his head in flexion briefly. No reported seizure activity. No incontinence. No additional complaints - patient denies fever, chills, chest pain, palpitations, numbness/tingling/weakness. No recent illness. Patient did complete his course of Brillinta and this medication was discontinued 2 weeks ago. In the ER patient afebrile, HD stable Case discussed with [facility] [place] Neurology - recommendations as below ER Course: Brillinta 180mg Allergies Allergy/AdvReac Type Severity Reaction Status Date / Time latex Allergy Intermediate RASH Verified 07/15/24 07:56 No Known Drug Allergies Allergy Verified 07/15/24 07:56 Home Medications Medication Instructions Recorded Confirmed Type aspirin 81 mg tablet,delayed 81 mg PO DAILY 09/02/23 07/15/24 History release atorvastatin 40 mg tablet 40 mg PO QPM #90 tabs 09/01/24 Rx carvedilol 25 mg tablet (Coreg) 25 mg PO Q12H #180 tabs 09/01/24 Rx Past Med/Surg History Problem List Transient cerebral ischemia (Acute) History of CVA (cerebrovascular accident) Internal carotid artery stent present Left 07/2023 @ [facility] [place] Allergic rhinitis Dyslipidemia Skin lesion of left ear Medical History Dissection of left carotid artery CVA (cerebral vascular accident) No significant medical problems Surgical History H/O fasciotomy X2 S/P coronary artery stent placement Hx of thumb surgery Closed reduction and percutaneous pinning of left thumb proximal phalanx supracondylar fracture Hx of hand surgery LEFT LITTLE FINGER SURGERY Nausea and vomiting after administration of anesthetic agent History of herniorrhaphy INGUINAL [place] teeth removed Family History Grandfather (Maternal) Diabetes Mother Hypertension Other No significant family history Denies family history of Ovarian cancer Prostate cancer Myocardial infarction Breast cancer Colorectal cancer Social History Smoking Status: Never smoker Second Hand Exposure: No; Do You Dip or Chew Tobacco: No; Hx Alcohol Use: No Hx Substance Use: No Preferred Language: Khmer Communication Ability: Effective Visual Impairment: No Limitations Hearing Ability: Normal Ward Helper Required: No Beliefs That Will Affect Care: None marital status: Current Living Situation: Spouse and Family current occupational status: employed current occupation: SELF EMPLOYEED How many Children do You have: 4 Feels Safe at Home: Yes Safety Concerns: Feels Safe At This Time Childhood Exposure to Second-Hand Smoke: No Diet: regular Diet Comment: regular caffeine: Yes during the past year weight has: remained stable Dental Care, Regularly: Yes Physical Activity Frequency: Daily Seatbelt Use: sometimes Sunscreen Use: Yes Assistive Devices: None Review of Systems Review of Systems: All systems reviewed & are unremarkable except as noted in HPI & below Physical Exam Physical Exam: General: patient resting comfortably, NAD, non-toxic in appearance, AA&O x 4 Skin: warm, dry, intact, no rashes or lesions HEENT: NC/AT, dilated left pupil, EOMI, anicteric sclera, conjunctiva without injection, external ear normal to inspection and nontender, nares patent, moist mucus membranes, dentition intact, no oropharyngeal lesions, neck supple, trachea midline, no LAD, no thyromegaly, no JVD Heart: +S1/S2, regular, no m/r/g Lungs: equal air entry bilaterally, no rales/rhonchi/wheezes Abd: +BS, soft, NT/ND, no masses/organomegaly/ascites Ext: warm, 2+ pulses in UE/LE bilaterally, no clubbing/cyanosis or edema Neuro: nonfocal, patient AA&O x 4, speech intact, no facial droop, moving all extremities on command with equal strength 5/5 Results & Data Results & Data Vital Signs (Past 12 Hours) Vital Signs Temp Pulse Pulse Resp BP BP Pulse Ox 10/23/24 03:45 88 20 149/79 H 98 10/23/24 02:58 86 10/23/24 01:00 86 17 157/93 H 96 10/23/24 00:30 91 H 20 140/76 96 10/23/24 00:00 93 H 20 158/89 H 96 10/22/24 23:30 95 H 20 146/80 H 96 10/22/24 23:22 36.4 C L 101 H 20 167/94 H 95 10/22/24 23:01 103 H O2 Del Method 10/23/24 03:45 Room Air 10/23/24 02:58 10/23/24 01:00 10/23/24 00:30 10/23/24 00:00 10/22/24 23:30 10/22/24 23:22 Room Air 10/22/24 23:01 Laboratory Results Laboratory Results WBC 11.08 K/ul (4.8-10.8) H 10/22/24 23:20 RBC 5.11 M/uL (4.70-6.10) 10/22/24 23:20 Hgb 14.9 g/dl (14.0-18.0) 10/22/24 23:20 Hct 43.6 % (42.0-52.0) 10/22/24 23:20 MCV 85.3 fL (80.0-100.0) 10/22/24 23:20 MCH 29.2 pg (25.0-34.0) 10/22/24 23:20 MCHC 34.2 g/dL (32.0-36.0) 10/22/24 23:20 RDW Std Deviation 39.3 fL (36.4-46.3) 10/22/24 23:20 RDW Coeff of Carlene 12.7 % (11.5-14.5) 10/22/24 23:20 Plt Count 245 K/uL (130-400) 10/22/24 23:20 MPV 10.1 fL (9.4-12.4) 10/22/24 23:20 Immature Gran % (Auto) 0.3 % 10/22/24 23:20 Neut % (Auto) 69.4 % 10/22/24 23:20 Lymph % (Auto) 17.7 % 10/22/24 23:20 [place] % (Auto) 8.8 % 10/22/24 23:20 Eos % (Auto) 3.2 % 10/22/24 23:20 Baso % (Auto) 0.6 % 10/22/24 23:20 Neut # (Auto) 7.70 K/uL (1.40-6.50) H 10/22/24 23:20 Lymph # (Auto) 1.96 K/uL (1.20-3.40) 10/22/24 23:20 [place] # (Auto) 0.97 K/uL (0.11-0.59) H 10/22/24 23:20 Eos # (Auto) 0.35 K/uL (0.00-0.50) 10/22/24 23:20 Baso # (Auto) 0.07 K/uL (0.00-0.20) 10/22/24 23:20 Immature Gran # (Auto) 0.03 K/uL (0.01-0.20) 10/22/24 23:20 PT 10.4 Seconds (9.0-12.0) 10/22/24 23:20 INR 1.0 (0.9-1.1) 10/22/24 23:20 APTT 27 Seconds (21-31) 10/22/24 23:20 PTT Ratio 1.0 10/22/24 23:20 Sodium 141 mmol/L (136-145) 10/22/24 23:20 Potassium 3.8 mmol/L (3.5-5.1) 10/22/24 23:20 Chloride 105 mmol/L (98-107) 10/22/24 23:20 Carbon Dioxide 28 mmol/L (21-32) 10/22/24 23:20 Anion Gap 8 (3-11) 10/22/24 23:20 BUN 21 mg/dl (6-23) 10/22/24 23:20 Creatinine 1.05 mg/dl (0.6-1.4) 10/22/24 23:20 Est Cr Clr Drug Dosing 119.5 ml/min 10/22/24 23:20 eGFR 92.03 10/22/24 23:20 BUN/Creatinine Ratio 20.0 (10-20) 10/22/24 23:20 Glucose 115 mg/dl (70-99(Fasting)) H 10/22/24 23:20 POC Glucose 103 mg/dl (70-99) H 10/22/24 23:21 Calcium 9.4 mg/dl (8.6-10.3) 10/22/24 23:20 Magnesium 1.9 mg/dl (1.7-2.4) 10/22/24 23:20 Total Bilirubin 0.3 mg/dl (0.2-1.0) 10/22/24 23:20 AST 18 U/L (13-39) 10/22/24 23:20 ALT 24 U/L (7-52) 10/22/24 23:20 Alkaline Phosphatase 117 U/L (34-104) H 10/22/24 23:20 Troponin I High Sens 2.5 pg/ml (0-20) 10/22/24 23:20 Total Protein 7.5 gm/dl (6.0-8.3) 10/22/24 23:20 Albumin 4.4 gm/dl (3.4-5.0) 10/22/24 23:20 Globulin 3.1 gm/dl (2.5-4.0) 10/22/24 23:20 Albumin/Globulin Ratio 1.4 (0.9-2) 10/22/24 23:[address] 10/22/24 23:03 EXAM: CT head/brain wo con CLINICAL HISTORY: Pt arrives to ED via EMS for following a 5 minute episode of expressive asphasia. Pt has hx of left carotid stent placed in [place] a year ago, with a torn right femoral from surgery that has not yet been repaired. Pt denies any headache, vision changes or pain. Pt is able to communicate effectively at time of arrival. TECHNIQUE: Multiple axial images are obtained from the skull base to the vertex without contrast. CT scan was performed according to ALARA (as low as reasonable achievable). COMPARISON: 08/16/2023 02:20:05 CLERICAL SUPPORT SPECIALIST FINDINGS: Large encephalomalacia with gliosis noted involving left parietal lobe cortex and subcortical white matter - sequelae of previous insult. The brain shows normal morphology, attenuation, and volume for age. No evidence of space occupying lesion, hemorrhage, edema, mass effect, midline shift, extra axial collection, or hydrocephalus is noted. Ventricles, sulci, and basal cisterns are symmetric and normal in size and configuration. The reyes-white matter differentiation is preserved. Visualized paranasal sinuses and mastoid air cells are well aerated. Orbital contents are within normal limits. Bony structures are intact. IMPRESSION: Large encephalomalacia with gliosis noted involving left parietal lobe cortex and subcortical white matter - sequelae of previous insult-new finding. No evidence of acute intracranial abnormality is demonstrated Electronically signed by Anthony Beaulieu 10-23-2024 01:09 AM Head CTA 10/22/24 23:03 EXAM: CT angio head w con CLINICAL HISTORY: Pt arrives to ED via EMS for following a 5 minute episode of expressive asphasia. Pt has hx of left carotid stent placed in [place] a year ago, with a torn right femoral from surgery that has not yet been repaired. Pt denies any headache, vision changes or pain. Pt is able to communicate effectively at time of arrival., 118 ML OPTIRAY 320 TECHNIQUE: Contrast enhanced thin slice CT angiography scan of the cerebral vessels was performed with intravenous contrast. Angiographic images were processed, 3D MIP images were acquired for interpretation. Contiguous axial images were obtained. Reformatted coronal and sagittal images were also reviewed. If IV contrast material had not been administered, the likelihood of detecting abnormalities relevant to the patients condition would have been substantially decreased. CT scan was performed according to ALARA (as low as reasonable achievable). COMPARISON: 08/16/2023 02:13:00 CLERICAL SUPPORT SPECIALIST FINDINGS: Bilateral internal carotid arteries show normal course, calibre and opacification in the canalicular and cavernous part. Their division into the anterior cerebral artery and middle cerebral artery is defined. A1, A2 and M1, M2 segments are normal on both the sides. Bilateral vertebral arteries are seen to unite the form the basilar artery in a normal fashion. Basilar artery shows normal course, caliber and opacification. Its division into the posterior cerebral arteries is defined. Bilateral P1 and P2 segments are normal. Visualized venous structures show normal opacification. No evidence of intracranial aneurysm or AV malformation is seen. IMPRESSION: 1. No evidence of stenosis or aneurysm. No evidence of dissection. As compared to prior study, complete recanalization of left internal carotid artery. Electronically signed by Anthony Beaulieu 10-23-2024 01:48 AM Neck CTA 10/22/24 23:03 EXAM: CT angio neck with con CLINICAL HISTORY: Pt arrives to ED via EMS for following a 5 minute episode of expressive asphasia. Pt has hx of left carotid stent placed in [place] a year ago, with a torn right femoral from surgery that has not yet been repaired. Pt denies any headache, vision changes or pain. Pt is able to communicate effectively at time of arrival. 118 ML OPTIRAY 320 TECHNIQUE: Contrast enhanced thin slice CT angiography scan of the carotid vessels was performed with intravenous contrast. Angiographic images were processed, 3D MIP images were acquired for interpretation.Contiguous axial images were obtained. Reformatted coronal and sagittal images were also reviewed. If IV contrast material had not been administered, the likelihood of detecting abnormalities relevant to the patients condition would have been substantially decreased. CT scan was performed according to ALARA (as low as reasonable achievable). COMPARISON: 08/16/2023 02:13:00 CLERICAL SUPPORT SPECIALIST FINDINGS: Evidence of thin intraluminal hypodense septum is noted involving left internal carotid artery just distal to carotid bulb - suggest possibility of dissection. Included great vessels of the aortic arch are grossly unremarkable. Common carotid artery, carotid Bulb, internal carotid artery , and origin of the external carotid artery are well opacified. Vertebral arteries are well opacified. Jugular veins are well opacified. Included lung apices are grossly unremarkable. Thyroid gland appears unremarkable. IMPRESSION: 1. Evidence of thin intraluminal hypodense septum is noted involving left internal carotid artery just distal to carotid bulb - suggest possibility of dissection. DDx - could be residual linear thrombus. 2. No evidence of stenosis or aneurysm. 3. As compared to prior study, there is recanalization of intra and extracranial segment of left internal carotid artery at present study. Electronically signed by Anthony Beaulieu 10-23-2024 01:23 AM PG Care Time/CCT Total # of Minutes Spent Total Time Spent with Patient: Total time spent is greater than 50% in coordination of care (as documented) at patient's floor/unit and/or counseling patient: Coding Level of Care Code 04164 INT INP/OBS CARE 3/75MIN Diagnoses Transient cerebral ischemia G45.9 Transient cerebral ischemia type: unspecified History of CVA (cerebrovascular accident) Z86.73 (1) Transient cerebral ischemia Transient cerebral ischemia type: unspecified Qualified Code(s): G45.9 - Transient cerebral ischemic attack, unspecified
[2024-10-23] MEDS ORDERED: ACETAMINOPHEN 325 MG TAB PO PRN (04:55)
[2024-10-23] MEDS ORDERED: ONDANSETRON INJ 2 MG/ML 2 ML VIAL IV PRN (04:55)
[2024-10-23] MEDS ORDERED: PHARMACIST DISCHARGE MED REC CONSULT PRN (04:55)
[2024-10-23 08:04] VITALS: RESP 18
[2024-10-23] MEDS: ASPIRIN 81 MG ECTAB PO SCH (08:27)
[2024-10-23] MEDS: TICAGRELOR 90 MG TAB PO SCH (08:27)
[2024-10-23] MEDS ORDERED: STROKE PATIENT DISCHARGE STA (11:51)
--- NOTE | 2024-10-23 11:52 | Neurology Consultation ---
Date of Consultation October 23, 2024 Assessment & Plan (1) Transient cerebral ischemia: (2) History of CVA (cerebrovascular accident): (3) Internal carotid artery stent present: (4) Hypertension: Plan Patient has had an episode of what is likely a transient ischemic attack. He is certainly, currently back to baseline. I suspect vasospasm, possibly secondary to hypertension, versus other (including possible small left carotid embolus traveling up distally into the left hemisphere). Patient had a significant left hemispheric stroke from a left internal carotid artery dissection July 2023, followed closely by clinicians at [facility]. The recent discontinuation of Brilinta may have put him at risk for new vascular event. He did tell me however that he is having considerable bruising on the combination of aspirin and Brilinta. In any event, clinically he is stable. He cannot get an MRI. Recommendations: 1. There are no additional neurologic testing performed given his inability to get an MRI. 2. For now, continue Brilinta and aspirin 3. Follow-up at [facility] (already has appointment for next week) and they are going to be doing additional studies. 4. Control blood pressure as you are doing. Overall, I spent a total 75 minutes with this case including review of records, review of CT scans, direct evaluation the patient at bedside, report generation, and discussion of the case with the patient and at bedside, RN at bedside, and Dr. Simmons, including differential diagnosis and treatment options. History of Present Illness Reason for Consultation: Patient is a 39-year-old who was asked to see at the request of Dr. Menon for neurologic evaluation regarding probable TIA Requesting Physician: Dr. Menon Attending Physician: Sergio Simmons MD History of Present Illness This patient has a history of left eye injury from a work accident in February 2023 affecting the vision in the left eye peripherally and the left pupil which has remained enlarged. In November 2022 he had the onset speech arrest and right hand clumsiness/weakness. There were some vision issues as well. He came to [facility] and was discovered to have a left internal carotid artery dissection. He was sent to [facility] and ended up with a thrombectomy and a shunt of the left ICA. He was discharged on Brilinta and aspirin and remained on that for months. He recovered from his deficits from the stroke in July 2023 with some residual speech issues if he is tired. His hand has completely recovered. He is still closely followed by clinicians at [facility]. About 2- 1/2 weeks ago on the advice of his vascular surgeon and neurosurgeon, he stopped Brilinta and remained on aspirin and atorvastatin. He takes carvedilol 25 mg twice a day for blood pressure. On October 22, he awoke feeling well. He went to work ([employer]) all day and was playing cards in the evening. Suddenly, at 9:36 PM, he took his hands to his head groaned and said "oh no". That was the only thing he could say and could not get any other speech. The worst of it lasted about 5 minutes and then gradually improved over the ensuing minutes. He states that when he said "oh no", he remembers having double vision. This double vision cleared when the speech came back. He did not have any pain, headache, weakness, numbness, gait problems, or memory issues. He arrived to the emergency room October 22 at 11/30/2000 with a pulse of 103, respiratory rate 20, temperature 36.4, blood pressure 167/94, and O2 saturation 95%. His exam was normal with no focal deficits. CBC showed elevated white count and neutrophils without anemia. CHEM profile was normal. TSH was 1.8. CT scan of the head showed a medium to large sized area of old left parietal encephalomalacia. There were no acute changes. CT angiography of the head revealed no evidence of vascular stenoses or anomalies. There was no dissection and the left ICA showed complete recanalization compared to the original studies in July 2023. CT angiography of the neck revealed a carotid bulb area evidence of thin intraluminal hypodense septum. This is probably residual linear thrombus but new dissection cannot entirely be excluded. No other abnormalities were seen The patient cannot get an MRI of the brain due to nasal metal. Today he feels back to baseline with no speech issues and no double vision or new vision problems. Allergies Allergy/AdvReac Type Severity Reaction Status Date / Time latex Allergy Intermediate RASH Verified 07/15/24 07:56 No Known Drug Allergies Allergy Verified 07/15/24 07:56 Home Medications Medication Instructions Recorded Confirmed Type aspirin 81 mg tablet,delayed 81 mg PO DAILY 09/02/23 07/15/24 History release atorvastatin 40 mg tablet 40 mg PO QPM #90 tabs 09/01/24 Rx carvedilol 25 mg tablet (Coreg) 25 mg PO Q12H #180 tabs 09/01/24 Rx ticagrelor 90 mg tablet (Brilinta) 90 mg PO BID #60 tabs 10/23/24 Rx Patient History Medical History Dissection of left carotid artery CVA (cerebral vascular accident) No significant medical problems Surgical History H/O fasciotomy X2 S/P coronary artery stent placement Hx of thumb surgery Closed reduction and percutaneous pinning of left thumb proximal phalanx supracondylar fracture Hx of hand surgery LEFT LITTLE FINGER SURGERY Nausea and vomiting after administration of anesthetic agent History of herniorrhaphy INGUINAL [place] teeth removed Family History Grandfather (Maternal) Diabetes Mother Hypertension Other No significant family history Denies family history of Ovarian cancer Prostate cancer Myocardial infarction Breast cancer Colorectal cancer Social History Smoking Status: Never smoker Second Hand Exposure: No; Do You Dip or Chew Tobacco: No; Hx Alcohol Use: No Hx Substance Use: No Preferred Language: Syrian Communication Ability: Effective Visual Impairment: No Limitations Hearing Ability: Normal Scene Shifter Required: No Beliefs That Will Affect Care: None marital status: Current Living Situation: Spouse and Family current occupational status: employed current occupation: SELF EMPLOYEED How many Children do You have: 4 Feels Safe at Home: Yes Childhood Exposure to Second-Hand Smoke: No Diet: regular Diet Comment: regular caffeine: Yes during the past year weight has: remained stable Dental Care, Regularly: Yes Physical Activity Frequency: Daily Seatbelt Use: sometimes Sunscreen Use: Yes Assistive Devices: None Review of Systems Constitutional: no fever, no fatigue and no weakness Eyes: no diplopia, no eye pain and no worsening vision Ear, Nose, Mouth, Throat: no ear pain, no tinnitus, no hearing loss, no dizziness, no snoring, no hoarseness and no dysphagia Respiratory: no cough and no dyspnea Cardiovascular: no chest pain, no palpitations and no lightheadedness Gastrointestinal: no abdominal pain, no nausea and no vomiting Musculoskeletal: no back pain, no neck pain, no radicular pain, no joint pain and no myalgia Integumentary: no rash and no lesions Neurologic: no gait abnormality, no localized weakness, no generalized weakness, no tingling, no numbness, no tremor(s), no abnormal movements, no headache(s), no abnormal speech, no confusion and no memory loss Psychiatric: no depression, no irritability, no anxiety, no difficulty concentrating, no confusion and no hallucinations Endocrine: no fatigue and no flushing Hematologic / Lymphatic: no easy bleeding and no easy bruising Allergy / Immunological: no urticaria and no problem reported Exam (Neuro) Physical Exam: The patient is right-handed. The patient is awake, alert, and attentive. Speech is normal without any aphasia or dysarthria. Mentation and thought processes are intact, with full orientation and normal fund of knowledge. Mood and affect are normal and appropriate. Appearance and grooming are normal. Short and long-term memory are intact. Pupils is 4 mm on the right and 8 mm on the left, both reactive to light (although the right eye is brisker than the left). Extraocular eye muscles are intact without nystagmus. Visual acuity and visual stewart seem normal grossly to confrontation. There are no deficits to sensation in the face in all 3 distributions of the fifth cranial nerve bilaterally. Corneal reflexes are positive bilaterally. Facial strength and symmetry was normal bilaterally. Hearing seems intact grossly to voice and finger rub bilaterally. Palate moves well without asymmetry. There is normal sternocleidomastoid and trapezius strength bilaterally. Tongue is midline with good strength bilaterally. Neck has a full range of motion without discomfort. There are no cervical bruits bilaterally. There are no cranial or ocular bruits. Heart is without murmur. There is a regular rhythm and rate. Cervical, thoracic, and lumbar spine are nontender to palpation. Gait is narrow based, with good arm swing, turns, and stance. With outstretched arms there is no drift. There are no resting, postural, or action tremors. There is no ataxia with finger to nose testing. There is good facility in the hands. No other abnormal involuntary movements are noted. Motor strength is 5/5 diffusely in the arms bilaterally including deltoids, biceps, triceps, brachioradialis, wrist flexors and extensors, belt maker helper, and intrinsic hand muscles. Motor strength is 5/5 diffusely in the legs bilaterally including hip flexors, quadriceps, hamstrings, gastrocnemius, tibialis anterior, tibialis posterior, and Peroneii muscles bilaterally. Toe extensors are normal and there is good bulk in the extensor digitorum brevis muscles bilaterally. The limbs have good tone without rigidity or spasticity. There is no atrophy noted in the muscles. Muscle bulk is normal, there is no tenderness to palpation, no myotonia to percussion, and no fasciculations seen. Sensory examination is intact to touch and pin throughout all 4 limbs diffusely. Reflexes are 2/4 in the biceps, triceps, brachioradialis, quadriceps, and Achilles tendons bilaterally. Results & Data Vital Signs (Past 12 Hours) Vital Signs Temp Pulse Pulse Resp BP BP Pulse Ox 10/23/24 08:03 36.5 C 76 18 137/81 95 10/23/24 05:56 10/23/24 05:45 71 10/23/24 05:08 86 10/23/24 04:54 36.7 C 82 16 140/92 95 10/23/24 04:00 78 20 135/75 96 10/23/24 03:45 88 20 149/79 H 98 10/23/24 03:00 81 20 149/79 H 10/23/24 02:58 86 10/23/24 01:00 86 17 157/93 H 96 10/23/24 00:30 91 H 20 140/76 96 10/23/24 00:00 93 H 20 158/89 H 96 O2 Del Method 10/23/24 08:03 Room Air 10/23/24 05:56 Room Air 10/23/24 05:45 10/23/24 05:08 10/23/24 04:54 Room Air 10/23/24 04:00 10/23/24 03:45 Room Air 10/23/24 03:00 10/23/24 02:58 10/23/24 01:00 10/23/24 00:30 10/23/24 00:00 PG Care Time/CCT Total # of Minutes Spent Total Time Spent with Patient: Total time spent is greater than 50% in coordination of care (as documented) at patient's floor/unit and/or counseling patient: Coding Level of Care Code 17398 INT INP/OBS CARE 3/75MIN Diagnoses Transient cerebral ischemia G45.9 Transient cerebral ischemia type: unspecified History of CVA (cerebrovascular accident) Z86.73 Internal carotid artery stent present Z95.828 Hypertension I10 Time Spent (min) 75 (1) Transient cerebral ischemia Transient cerebral ischemia type: unspecified Qualified Code(s): G45.9 - Transient cerebral ischemic attack, unspecified
[2024-10-23 11:53] VITALS: BP 120/84; PULSE 73; TEMP 98.2; O2SAT 96
--- NOTE | 2024-10-23 11:53 | Discharge Summary ---
Discharge Summary Date of Service October 23, 2024 Principal Dx & Hospital Course #1 = Principal Diagnosis (1) Transient cerebral ischemia: Symptoms have completely resolved. He has been seen by neurology here. In their opinion, there is no reason for follow-up studies or an EEG. Brilinta has been restarted. He will be discharged home today and follow-up with his neurologist as scheduled sometime next week. (2) History of CVA (cerebrovascular accident): History of carotid artery dissection last year treated at [facility]. Continue current medical management Plan Home today, October 23 Admission HPI Per Admitting Provider Myles Oneill is a pleasant 39yo male with history of left MCA stroke secondary to carotid artery dissection and occlusion. He is s/p thrombectomy with stent placement. Patient with very minimal neurologic deficits following his CVA - some right sided weakness when he is very tired, otherwise no deficits. He does have baseline dilation of his left pupil following an accident. This evening patient was going to bed when he developed acute onset of diplopia and dysarthria. He reports that the double vision involved both eyes and was horizontal diplopia. This lasted approximately 5 minutes then resolved entirely. His dysarthria continued for approximately 30 minutes - he reports he was unable to speak. The event was witnessed by patient's - she reports that he pulled both his hands up to his head in flexion briefly. No reported se izure activity. No incontinence. No additional complaints - patient denies fever, chills, chest pain, palpitations, numbness/tingling/weakness. No recent illness. Patient did complete his course of Brillinta and this medication was discontinued 2 weeks ago. In the ER patient afebrile, HD stable Case discussed with [facility] Neurology - recommendations as below ER Course: Brillinta 180mg Discharge Exam General-alert and oriented x3, no fever, no chills HEENT-head atraumatic and normocephalic, pupils equal and reactive to light, extraocular muscles intact Neck-no lymphadenopathy or thyromegaly, trachea midline Chest-clear to auscultation. No rales, wheezing or rhonchi Cardiac-regular rate and rhythm, normal S1 and S2 Abdomen-normal bowel sounds, no hepatosplenomegaly Extremities-no cyanosis, clubbing, or edema Neuro-cranial nerves II through XII intact, motor and sensory function within normal limits, strength symmetrical, no focal deficits Psych-normal affect, normal mood Discharge Plan Discharge Items Patient Disposition: Home - Self-Care Reason For Visit: POSSIBLE TIA Discharge Diagnosis: Suspected TIA Condition on Discharge: Good Activity: Resume your previous activity Non-emergency contact: Primary Care Provider and Neurologist Call non-emergency contact if: your symptoms worsen Follow-up/Referrals: Tri Fernandez CRNP [Primary Care Provider] - Diet: Regular Addtl Attending Provider Instructions: Resume taking Brilinta 90 mg twice daily. All other medications remain the same. Follow-up with neurology as scheduled Pending Studies at Discharge: No Stand-Alone Forms: Tech urSelf, Smoking Cessation Medications and DC Order Prescriptions: New Brilinta 90 mg Tablet 90 mg PO BID Qty: 60 0RF Continued aspirin 81 mg tablet,delayed release (DR/EC) 81 mg PO DAILY Rx Instructions: New: DC [facility] 08/30/23 atorvastatin 40 mg tablet 40 mg PO QPM Qty: 90 1RF carvedilol [Coreg] 25 mg tablet 25 mg PO Q12H Qty: 180 1RF Rx Instructions: must administer with a meal/food Discharge Orders: Discharge Order (Routine); Ordered 10/23/24 Ordered By: Sergio Simmons Admission Data Admit Date/Time: 10/23/24 04:03 Attending Provider: Sergio Simmons Admit Provider: Meg Menon Primary Care Provider: Tri Fernandez Other Providers: Meg Menon; [facility] Stay Data Consultations 10/23/24 03:03 ED Decision to Admit Stat 10/23/24 04:55 Consult Neurology Routine Diagnostic Imagining Performed 10/22/24 23:03 CT angio head w con Stat CT angio neck with con Stat CT head/brain wo con Stat 10/23/24 23:00 CT head/brain wo con Routine Pending Results Patient Have Any Pending Studies at Discharge: No Discharge Instructions Given to Patient (Per Discharging Provider) Resume taking Brilinta 90 mg twice daily. All other medications remain the same. Follow-up with neurology as scheduled Total Time Total Time Spent Total Time Spent (In Minutes): 45 minutes Coding Level of Care Code 73707 INP/OBS DISCH >30 MIN Diagnoses Transient cerebral ischemia G45.9 Transient cerebral ischemia type: unspecified History of CVA (cerebrovascular accident) Z86.73
--- NOTE | 2024-10-23 12:07 | Pharmacy Report ---
- Date of Service October 23, 2024 - Pharmacy CVA/TIA Medication Review Medications to Prevent Stroke handout has been added to the patients discharge packet. Antiplatelet(s) * Aspirin 81mg PO daily, ticagrelor 90mg PO BID Cholesterol * High intensity statin: atorvastatin 40 mg daily DVT Prophylaxis * Pharmacologic and mechanical DVT prophylaxis deferred Therapeutic Anticoagulation * No history of Afib/Aflutter noted Type 2 Diabetes * Patient does not have T2DM
--- NOTE | 2024-10-23 15:47 | Electrocardiogram Report ---
Test Reason : Blood Pressure : */* mmHG Vent. Rate : 96 BPM Atrial Rate : 96 BPM P-R Int : 140 ms QRS Dur : 92 ms QT Int : 340 ms P-R-T Axes : 47 40 14 degrees QTcB Int : 429 ms Normal sinus rhythm Normal ECG When compared with ECG of 16-Aug-2023 02:12, ST elevation now present in Inferior leads T wave inversion less evident in Inferior leads Confirmed by Dejon Mosquera ([id number]) on 10/23/2024 3:47:46 PM Referred By: REFERRED SELF Confirmed By: Dejon Mosquera
[2024-10-23] MEDS ORDERED: ATORVASTATIN 40 MG TAB PO SCH (21:00)
== END 2024-10-23 12:41 | disposition home or self-care (01) | DRG 69 ==
LOC: ED 22:57 → SUATTDRO 10-23 04:03 → 2E 10-23 04:03